=== PATIENT | male | born 1955 | race Asian ===

== ENCOUNTER 2017-08-02 06:32 | Day surgery (SDC) | payer OTHER ==
[~2017-08-02] VITALS: Ht 167.6 cm; Wt 63.5 kg
[2017-08-02] MEDS ORDERED: LIDOCAINE 2% 1000 MG/50 ML VIAL INJ ONE (07:28)
== END 2017-08-02 09:00 | disposition home or self-care (01) ==
LOC: MOR 06:32 → MMU 06:40 → MOR 09:00
PROVIDERS: ATTEND Internal Medicine Gastroenterology
DX: B19.20 Unspecified viral hepatitis C without hepatic coma (principal); E66.3 Overweight; I10 Essential (primary) hypertension; Z79.899 Other long term (current) drug therapy; Z87.891 Personal history of nicotine dependence
CPT/HCPCS: 47000; 76942; J2001; Q0092